=== PATIENT | female | born 1980 | race African-American/Black ===

== ENCOUNTER → 2021-01-03 | Outpatient (CLI) | payer OTHER ==
[~2021-01-03] MED LIST: ANTI-DIARRH1 MG/5 ML PO; BACTRIM DS TAB1 EACH PO; LASIX 20 MG TAB20 MG PO; POTASSIUM20 PO; SINGULAIR 5 MG C5 M1 PO; SYMBICORT160 MCG/4. INH; VENTOLIN HFA 1818 GM INH; VENTOLIN17 GM INH; ZOFRAN ODT4 MG PO
== END ==
LOC: RAD 14:34
PROVIDERS: ATTEND Internal Medicine
DX: J45.909 Unspecified asthma, uncomplicated (principal); I51.7 Cardiomegaly